=== PATIENT | male | born 1985 | race African-American/Black ===

== ENCOUNTER 2016-08-25 17:42 | Emergency (ER) | payer SELFPAY ==
[~2016-08-25] VITALS: Ht 177.8 cm; Wt 90.0 kg
[2016-08-25 17:42] VITALS: BP 144/69; PULSE 98; RESP 18; TEMP 98.1; O2SAT 98
[~2016-08-25 17:42] MED LIST: Z.0.NO CURRENT MEDS
--- NOTE | 2016-08-25 20:29 | PD ---
HPI Chief Complaint: ENT Complaint Time Seen by Provider: 20:10 Travel History International Travel<30 days: No Contact w/Intl Traveler<30days: No Traveled to known affect area: No History of Present Illness HPI Patient comes in complaining of right ear pain that began last night. Patient describes pain as sharp stabbing like in nature without radiation. Patient denies any fevers, headache, sore throat, neck pain, nausea, change in hearing, cough, chest pain, or shortness of breath. Patient states he poured peroxide in his ear prior to coming to the emergency department and this seemed to help some. Denies anything making the pain worse. History Social History Alcohol Use: Yes (2 X WEEK) Tobacco Use: Yes (1/2 PPD X5 YEARS) Allergies-Medications (Allergen,Severity, Reaction): Coded Allergies: No Known Allergies (Verified Allergy, Mild, 01/17/07) Reported Meds & Prescriptions Reported Meds & Active Scripts Active Reported No Current Meds (Miscellaneous Medication) Misc Review of Systems Except as stated in HPI: all other systems reviewed are Neg Physical Exam Narrative GENERAL: Well-developed, well nourished, in no acute distress, and non-ill appearing. SKIN: Warm and dry. HEAD: Atraumatic. Normocephalic. EYES: Pupils equal and round. EOMI. No scleral icterus. No injection or drainage. ENT: No nasal bleeding or discharge. Mucous membranes pink and moist. Tympanic membranes pearly lu bilaterally. No tenderness to the mastoid processes bilaterally. No pain with tugging of the auricle or tragus bilaterally. Posterior pharynx nonerythematous without exudate. Uvula is midline. No tenderness to facial sinuses to palpation. NECK: Trachea midline. No lymphadenopathy. Supple. No nuclear rigidity. CARDIOVASCULAR: Regular rate and rhythm. No murmur appreciated. RESPIRATORY: No accessory muscle use. No respiratory distress. Clear to auscultation. Breath sounds equal bilaterally. MUSCULOSKELETAL: No obvious deformities. No clubbing. No cyanosis. No edema. Full range of motion. NEUROLOGICAL: Awake and alert. No obvious cranial nerve deficits. Motor grossly within normal limits. Normal speech. PSYCHIATRIC: Appropriate mood and affect; insight and judgment normal. Data Data Last Documented VS Vital Signs Date Time Temp Pulse Resp B/P Pulse Ox O2 Delivery O2 Flow Rate FiO2 08/25/16 17:42 98.1 98 18 144/69 98 Room Air MDM Medical Screen Exam Complete: Yes Emergency Medical Condition: No Narrative Course History and physical exam findings are not consistent with an emergent medical condition. He was given the option of receiving additional care, but has declined. Therefore the appropriate counseling recommendations were discussed with the patient and he was instructed to follow-up with his primary care physician as soon as possible for reevaluation. Patient was also informed of community resources from which he can obtain additional care. He is agreeable and verbalizes an understanding of the proposed plan. The patient states he will immediately return to the emergency department if his current complaints do not improve, new symptoms arise, or emergent condition develops. Patient ambulated out of the emergency department without difficulty. Primary Impression: Encounter for medical screening examination Disposition: [facility]-ED USE ONLY Condition: Stable Hugh Washington Aug 25, 2016 20:29
== END 2016-08-25 20:45 | disposition left against medical advice (07) ==
LOC: NEPB 17:42
DX: H92.01 Otalgia, right ear (principal)
CPT/HCPCS: 99281